=== PATIENT | female | born 1955 | race Caucasian/White ===

== ENCOUNTER 2025-01-13 15:32 | Outpatient (AMB) | payer OTHER, SELFPAY ==
--- NOTE | 2025-01-13 15:34 | A.OFFPC_ITS ---
Vital Signs 01/13/25 15:43 Height 5 ft 1 in Weight 239 lb 2 oz BMI 45.2 BP 142/79 H Blood Pressure Location Rt radial Position Sitting Pulse 81 Pulse Source Pulse Oximeter Temp 97.8 F Temp Source Oral Pulse Oximetry (%) 93 Oxygen Delivery Method Room Air Intake Visit Reasons: establish care Accompanied by: Grand Child Allergies No Known Allergies Allergy (Verified 01/13/25 15:35) Tobacco use date assessed: 01/13/25 Fall risk assessment: No Falls in past year Last assessed Fall Risk: 01/13/25 Dental Screening Dental Screen Date: 01/13/25 Did you have a dental visit in the last 12 months?: No Was dental information given to patient?: Patient has dentist HPI HPI Comments History of Present Illness Details History of Present Illness The patient is a 69-year-old female presenting with oral discomfort and knee pain. Hypertension: - The patient has a history of hypertens ion, previously managed in [place]. - Blood pressure was recorded at 142/79 mmHg during the visit. Anxiety: - The patient experiences anxiety, which she associates with a past incident of falling in the snow and fracturing her wrist. - She is currently prescribed duloxetine for anxiety management. Depression: - The patient reports depression and is prescribed duloxetine for management. Insomnia: - The patient has difficulty sleeping, p articularly due to knee and back pain. - She is prescribed trazodone to aid sle ep. Osteoarthritis of the knees: - The patient has been advised to underg o total knee replacement surgery due to severe osteoarthritis. - She has attempted weight loss to quali for surgery but has not proceeded with the operation. History of wrist fracture: - The patient fractured her left wrist a fter a fall in the snow, which impacted her daily activities significantly. Review of Systems - Oral: Reports discomfort in the mouth. - Musculoskeletal: Reports knee pain and history of wrist fracture. - Psychiatric: Reports anxiety and depre ssion. - Sleep: Reports difficulty sleeping due to pain. 10-point ROS reviewed and negative excep t as noted in HPI Past Medical History - Hypertension, managed in [place] - Anxiety, currently managed with duloxe jung - Depression, currently managed with dul oxetine - Insomnia, managed with trazodone - Osteoarthritis of the knees, advised f or total knee replacement - History of left wrist fracture Health Maintenance - Blood tests planned to assess red and white blood cells, hemoglobin, kidney function, electrolytes, glucose, cholesterol, magnesium, B12, folate, thyroid function, vitamin D, and hepatitis B status. Physical Exam General: Well-appearing, in no acute distress. Vital signs: Blood pressure 142/79. HEENT: Normocephalic, atraumatic. PERRLA, EOMI. Conjunctiva clear, sclera anicteric. Oropharynx clear, mucous membranes moist. TMs intact bilaterally. Neck: Supple, no lymphadenopathy, no thyromegaly, no JVD or carotid bruits. Cardiovascular: RRR, normal S1/S2, no murmurs, rubs, or gallops. Peripheral pulses 2+ and symmetric. No edema. Respiratory: Lungs clear to auscultation bilaterally, no wheezes, rales, or rhonchi. Normal effort. Abdomen: Soft, non-tender, non-distended. Normoactive bowel sounds. No hepatosplenomegaly, no masses. MSK: Limited range of motion due to knee pain. History of left wrist fracture. No joint swelling or deformity. Normal gait. Skin: Warm, dry, intact. No rashes, lesions, or pallor. Neuro: Alert and oriented x3. Cranial nerves II-XII intact. Strength 5/5 throughout. Sensation intact. Reflexes 2+ symmetric. Normal coordination and gait. Psych: Appropriate mood and affect. Normal judgment and insight. History of anxiety and depression. Taking duloxetine, gabapentin, meloxicam, and trazodone. Plan 1. Hypertension - Blood pressure management to be contin ued, with monitoring of current levels and adjustment of therapy as needed. 2. Anxiety - Continue current management with dulox etine, monitor for efficacy and side effects. 3. Depression - Continue current management with dulox etine, monitor for efficacy and side effects. 4. Insomnia - Continue trazodone for sleep, assess f or improvement in sleep quality and any side effects. 5. Osteoarthritis Of The Knees - Consideration for total knee replaceme nt surgery, pending weight management and patient readiness. 6. History Of Wrist Fracture - No current intervention required, heber tor for any residual functional limitations. Discussion Notes I discussed with the patient the management of her hypertension, anxiety, depression, and insomnia. We reviewed her current medications, including duloxetine and trazodone, and emphasized the importance of adherence to her treatment regimen. We also discussed the potential for knee replacement surgery due to her osteoarthritis and the need for weight management to facilitate this. I advised her on the upcoming blood tests to monitor various health parameters and scheduled a follow-up appointment in two weeks to review her results and adjust her management plan as necessary. Patient was informed and verbally consented to the use of an ambient scribe for clinic note documentation during this visit. Patient Instructions - Continue taking prescribed medications : duloxetine for anxiety and depression, trazodone for sleep. - Monitor blood pressure regularly and r eport any significant changes. - Follow up in two weeks for review of b lood test results and management plan adjustment. - Consider weight management strategies to prepare for potential knee replacement surgery. Total time spent caring for the patient today was 30 minutes. This includes time spent before the visit reviewing the chart, time spent documenting, and time spent reviewing laboratory results, diagnostic imaging, medications, performing a medically necessary evaluation, counseling on diagnoses, care coordination, ordering appropriate tests. [facility] Medical History (Updated 01/13/25 @ 09:39 by Elina Camargo MA) Fx triquetral, wrist-closed Schizoaffective disorder Hypertension Family History (Updated 01/13/25 @ 15:43 by Anjana Brown [facility]) Mother Arthritis Enlarged heart Father No problems noted. Social History Housing: House Patient Tobacco Use Status: Former Tobacco user service: No Current occupational status: employed and disabled Cognitive needs: Yes (walker) Hearing needs: No Vision needs: Yes (rx glasses) Questionnaire PHQ-9 Over the last 2 weeks, how often have you been bothered by any of the following problems? 1. Little interest or pleasure in doing things: nearly every day 2. Feeling down, depressed, or hopeless: nearly every day 3. Trouble falling or staying asleep, or sleeping too much: nearly every day 4. Feeling tired or having little energy: nearly every day 5. Poor appetite or overeating: not at all 6. Feeling bad about yourself - or that you are a failure or have let yourself or your family down: more than half the days 7. Trouble concentrating on things, such as reading the newspaper or watching television: more than half the days 8. Moving or speaking so slowly that other people could have noticed. Or the opposite - being so fidgety or restless that you have been moving around a lot more than usual: more than half the days 9. Thoughts that you would be better off or of hurting yourself in some way: more than half the days Total score: 20 Source: Developed by Drs. Khari Palmer, Ashok Pitts and colleagues, with an educational yara from [employer]. Thrive Questionnaire Date Thrive assessed: 01/13/25 I am a: Parent/Caregiver What is your living situation today?: I have a steady place to live Within the past 12 months, did the food you bought not last and you didn't have the money to get more?: Never true Within the past 12 months, did you worry whether your food would run out before you got money to buy more?: Never true Do you have trouble paying for medicines?: No Do you have trouble getting transportation to medical appointments?: No Do you have trouble paying your heating and electricity bill?: Yes Do you have trouble taking care of your child, family member or friend?: No Are you currently unemployed and looking for a job?: No Are you interested in more education?: No Please select the resources that you would like help with: Utilities Currently or been in a relationship where the following occur: No concerns reported THRIVE Score: 1 AUDIT C Alcohol Use Questionnaire (AUDIT-C) 1. How often do you have a drink containing alcohol?: Never Total Score: 0 NAKUL-7 AMB Questionnaire NAKUL-7 Date NAKUL - 7 assessed: 01/13/25 Feeling nervous, anxious, or on edge: 2 = More than half the days Not being able to stop or control worryin = More than half the days Worrying too much about different things: 2 = More than half the days Trouble relaxin = Nearly every day Being so restless that it is hard to sit still: 3 = Nearly every day Becoming easily annoyed or irritable: 3 = Nearly every day Feeling afraid as if something awful might happen: 3 = Nearly every day Total NAKUL-7 score (0-4 normal; 5-9 mild; 10-14 moderate; 15-21 severe): 18 Source: Developed by Drs. Khari Palmer, Ashok Pitts and colleagues, with an educational yara from [employer]. Physical exam (Primary Care) Vital Signs: Last Vital Signs Temp 97.8 F 01/13/25 15:43 Pulse 81 01/13/25 15:43 BP 142/79 H 01/13/25 15:43 Pulse Ox 93 01/13/25 15:43 Oxygen Delivery Method Room Air 01/13/25 15:43 BMI result Body Mass Index 45.2 Tobacco/Smoking Status: Tobacco use Status Tobacco use date assessed 01/13/25 01/13/25 15:38 Patient Tobacco Use Status Former Tobacco user 01/13/25 15:46 PHQ-9: PHQ-9 Score PHQ-9: Total score 20 01/13/25 15:38 Thrive Assessment: Date of Thrive Assessment Date Thrive assessed 01/13/25 01/13/25 15:38 Currently or been in a relationship where the following occur: No concerns reported Coding Level of Care Code New Pt Level 4 (14254) Diagnoses Hypertension I10 Anxiety and depression F41.9; F32.A Insomnia G47.00 Osteoarthritis of both knees M17.0 Morbid obesity due to excess calories E66.01 Impaired gait and mobility R26.89 Assessment & Plan Assessment & Plan (1) Hypertension: Code(s): I10 - Essential (primary) hypertension (2) Anxiety and depression: Code(s): F41.9 - Anxiety disorder, unspecified; F32.A - Depression, unspecified (3) Insomnia: Code(s): G47.00 - Insomnia, unspecified (4) Osteoarthritis of both knees: Code(s): M17.0 - Bilateral primary osteoarthritis of knee (5) Morbid obesity due to excess calories: Code(s): E66.01 - Morbid (severe) obesity due to excess calories (6) Impaired gait and mobility: Code(s): R26.89 - Other abnormalities of gait and mobility Plan Orders: Orders Complete Blood Count Auto Diff Today Z13.9 - Encounter for screening, unspecified Comprehensive Met. Panel Today Z13.9 - Encounter for screening, unspecified Hepatitis B Surface Antibody Today Z13.9 - Encounter for screening, unspecified Lipid Panel Today Z13.9 - Encounter for screening, unspecified Magnesium Today Z13.9 - Encounter for screening, unspecified UA CC w/rflx Micro + Cult Today Z13.9 - Encounter for screening, unspecified Vitamin B12 and Folate Today Z13.9 - Encounter for screening, unspecified Vitamin D 1,25 dihydroxy Today Z13.9 - Encounter for screening, unspecified Hemoglobin A1c Today Z13.9 - Encounter for screening, unspecified Hepatitis B Surface Antigen Today Z13.9 - Encounter for screening, unspecified Hepatitis C Antibody Today Z13.9 - Encounter for screening, unspecified HIV Ab/Ag Today Z13.9 - Encounter for screening, unspecified TSH reflex Free T4 Today Z13.9 - Encounter for screening, unspecified
[2025-01-13 15:43] VITALS: BP 142/79; PULSE 81; TEMP 36.6; O2SAT 93; BMI 45.2
== END 2025-01-13 16:08 | disposition home or self-care (01) ==
LOC: HO.HMCFMS 15:33
PROVIDERS: PCP Student in an Organized Health Care Education/Training Program; Visit Provider Student in an Organized Health Care Education/Training Program
DX: I10 Essential (primary) hypertension (principal); F41.9 Anxiety disorder, unspecified; F32.A Depression, unspecified; G47.00 Insomnia, unspecified; M17.0 Bilateral primary osteoarthritis of knee; E66.01 Morbid (severe) obesity due to excess calories; R26.89 Other abnormalities of gait and mobility

== ENCOUNTER → 2025-01-13 15:32 | Outpatient (BNVA) | payer OTHER, SELFPAY | PROVIDERS: PCP Internal Medicine; Visit Provider Student in an Organized Health Care Education/Training Program | DX: I10 Essential (primary) hypertension (principal); F41.9 Anxiety disorder, unspecified; F32.A Depression, unspecified; G47.00 Insomnia, unspecified; M17.0 Bilateral primary osteoarthritis of knee; E66.01 Morbid (severe) obesity due to excess calories; R26.89 Other abnormalities of gait and mobility; Z68.42 Body mass index [BMI] 45.0-49.9, adult | CPT/HCPCS: 96127; 99202 ==

== ENCOUNTER 2025-01-21 10:08 | Outpatient (REF) | payer OTHER, SELFPAY ==
--- OUTSIDE RECORDS SUMMARY | 2025-01-21 12:00 | XMS_ITS | Data Portability ---
Author Organization [facility] [employer] [facility], [facility] [employer] [facility] Address [address] [place] [address] Care Team Providers Care Telegraph Repeater Installer Name Role Phone [facility] Referring Provider [phone] Assessment No assessment recorded. Plan of Treatment Reminders Order Date Submit Date Provider Last Modified By Organization Details Last Modified Time Details Appointments None recorded. Lab None recorded. Referral None recorded. Procedures None recorded. Surgeries None recorded. Imaging None recorded. Medication Orders ketorolac 30 mg/mL (1 mL) injection solution 2022 023 [email or web address] Not available 3 12:19:37 Patient TargetsNo targets recorded. Patient InstructionsNo instructions recorded. Reason for Referral None Reported. Medical Equipment None Reported. Medications Name Sig Start Date Stop Date Status Note LastModified by Organization Details LastModified Time trazodone 50 mg tablet TAKE 1 TABLET BY MOUTH AT BEDTIME FOR SLEEP active Not Available Not Available No t Available ketorolac 30 mg/mL (1 mL) injection solution Inject 1 mL as needed by intramuscul ar route for 1 day. 2022 active Not Available Not Available Not Avai lable escitalopram 10 mg tablet TAKE 1 TABLET BY MOUTH EVERY DAY active Not Available Not Available No t Available duloxetine 60 mg capsule,lynda yed release TAKE 1 CAPSULE BY MOUTH EVERY MORNING active Not Available Not Available No t Available Vitals Date Recorded Respiratory rate Oxygen saturation Oxygen saturation in Arterial blood by Pulse oximetry Heart rate Systolic And Diastolic Provider Name and Address Organization Details Last Updated DateTime 3 18 /min 97 % 97 % 95 /min 158/92 mm[Hg] Not Available [employer] - production 3 12:15:35 Social History None recorded. Functional Status None recorded. Mental Status None recorded. Family History Nothing Reported. Medical History No medical history recorded. Gynecological HistoryNo gynecological history recorded. Obstetrics History GPAL:G 0 P 0 0 0 0 Past Encounters Encounter ID Performer Location Encounter Start Date Encounter Closed Date Diagnosis/Indication Diagnosis SNOMED-CT Code Diagnosis ICD10 Code Diagnosis IMO Codes Diagnosis Note [id number] Ruth Ann Chong MD Main - [address] [id number] 04/25/2022 12:15:33 04/30/2022 19:48:58 Chronic back pain [id number] G89.29 66 year old female being evaluated for acute on chronic bilateral knee and back pain. Patient reports has had this pain for some time, but is worse recently. No fever/chil ls, no trauma history, no loss of mobility or limitation in daily function. Taking tylenol and motrin, only marginally helpful. Interested in something else for pain. Exam notable for normal vital signs, and grossly normal back and knee exam. 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 Health Concerns Section Related Observation LastModified by Organization Detai ls LastModified Time None Recorded Concern Status LastModified by Organization Details LastModified Time None Recorded Advance Directives Directive None Recorded Payers Insurance Date Sequence Insurance Name Policy Number Policy Blanco Covered Member ID Blanco Member ID Guarantor Name 04/25/2022 1 [facility] - DOS PRIOR TO 2022 - DUAL ELIGIBLE (MEDICARE REPLACEMENT/ADV ANTAGE - HMO) Hipolita Mitchell Kennedy [id number] Hipolita Mitchell Kennedy Notes Date Note Type Note Provider Name and Address Organization Details Recorded Time 04/25/2022 text/html [facility] Nursing Assessment: Chief Complaints: Pain PMH: Other Allergies: No Known Comments: Visit requested for chronic lower back pain that has recently worsened and bilat knee pain. PMH of arthritis. No falls or injuries. Patient taking APAP with little relief. Ambulated using walker. No recent decline in mobility. .................. .................. .................. .................. .................. .................. .................. ............... Puppy Walker Note: Pt states she has arthritis and needs to loose 25lbs for them to do knee surgery. She s also having lower back pain from arthritis. Pt denies any recent trauma to the areas. Pt states normally Tylenol/Motrin help but have been mildly ineffective recently. No bruising noted in areas. C consulted l. Pt given 30mg IM ketorolac. Red flags discussed .................. .................. .................. .................. .................. .................. .................. ............... Disposition: Fulfilled Ruth Ann Chong MD [address] [facility],[address], [place], [address], [employer] - Contacts+ 04/25/2022 12:19:43 OBGyn Episode No OBEpisode recorded.
--- OUTSIDE RECORDS SUMMARY | 2025-01-21 12:00 | XMS_ITS | Clinical Summary ---
Author Organization [facility] [address] [place] [address] [place] [address] Phone Care Team Providers Care Bacteriology Technician Name Role Phone Sahara Shafer MD Primary Care Prov ider Allergies No known active allergies Medications DULoxetine (CYMBALTA) [address] capsule TAKE 1 CAPSULE BY MOUTH EVERY MORNING TAKE WITH THE 30 MG CAPSULE 08/21/2023 Active escitalopram (LEXAPRO) 10 mg tablet 09/03/2023 Active traZODone (DESYREL) 50 mg tablet TAKE 1 TABLET BY MOUTH AT BEDTIME FOR SLEEP 01/24/2021 Active acetaminophen (Tylenol 8 Hour) 650 mg 8 hr tablet Take 1 tablet (650 mg total) by mouth every 8 (eight) hours if needed for mild pain. Do not crush, chew, or split. 30 tablet 2 02/10/2024 Active meloxicam (MOBIC) 15 mg tablet TAKE 1 TABLET BY MOUTH DAILY NEEDED FOR PAIN 90 tablet 03/05/2024 Active Active Problems Problem Noted Date Diagnosed Date Obesity 02/06/2021 Primary osteoarthritis of both knees 10/02/2020 Anxiety and depression 11/03/2017 Essential hypertension 11/03/2017 Overview (01/05/2024): Was on medication in the past; unsure of name Encounters Date Type Department Care Team Description 12/17/[address] [facility] [address] [place], [place] [phone] Sahara Shafer MD 11/22/2024 Telephone Lung Screening Program [address] [place] [phone] No Ge [place] from Last 3 Months Immunizations Immunization Administration Dates Next Due Pfizer SARS-CoV-2 COVID-19, mRNA, LNP-S, preservative free 12/05/2020,11/14/2020 Pneumococcal conjugate 20 va lent (Prevnar 20, PCV 20) 2mo and older 09/03/2023 Tdap Tetanus diptheria acell ular pertussis (Boostrix; Adacel) 7yo and older 11/03/2017 Surgical History Surgery Date Site/Laterality Comments OTHER SURGICAL HISTORY PROCEDURE: DENIES PREVIOUS SURGERY Medical History Medical History Date Comments Essential hypertension 11/03/2017 DX:Essent ial hypertension; COMMENT: Was on medication in the past; unsure of name - stopped with clinic closing Anxiety and depression 11/03/2017 DX:Anxiet y and depression Obesity DX:Obesity Family History Medical History Relation Name Comments Breast cancer Aunt maternal No Known Problems Daughter 1 No Known Problems Daughter 2 No Known Problems Daughter 3 No Known Problems Father Other: cardiac enlargement Mother No Known Problems Son 1 No Known Problems Son 2 No Known Problems Son 3 Lung cancer Neg Hx Relation Name Status Comments Aunt maternal Daughter 1 Alive Daughter 2 Alive Daughter 3 Alive Father Mother Alive Son 1 Alive Son 2 Alive Son 3 Alive Social History Tobacco Use Types Packs/Day Years Used Date Smoking Tobacco: Former Cigarettes 1.5 30 0 04/07/1979 - 04/07/2009 Smokeless Tobacco: Never Tobacco Cessation:Counseling Given: Not Answered Alcohol Use Standard Drinks/Week Comments No 0 (1 standard drink = 0.6 oz pur e alcohol) Comments Unknown Sex and Gender Information Value Date Recorded Sex Assigned at Female 12/08/2024 8:51 PM EDT Legal Sex Female 3:57 AM EST Gender Identity Not on file Sexual Orientation Not on file Obstetrics History Last Filed Vital Signs Vital Sign Reading Time Taken Comments Blood Pressure 115/70 07/06/2024 1:59 PM EDT Pulse 98 07/06/2024 1:59 PM EDT Temperature 36 C (96.8 F) 02/10/2024 12:46 PM EST Respiratory Rate 14 02/10/2024 12:46 PM EST Oxygen Saturation - - Inhaled Oxygen Concentration - - Weight 109 kg (241 lb) 07/06/2024 1:59 PM EDT Height 160 cm (5' 3 ) 01/13/2024 1:12 PM EDT Body Mass Index 42.69 01/13/2024 1:12 PM EDT Plan of Treatment Health Maintenance Due Date Last Done Comments Breast Cancer Screening 1955 RSV Immunization Adult Patients (1 - Risk 50-74 years 1-dose series) 11/18/2003 Zoster Vaccines (1 of 2) 11/18/2003 Colorectal Cancer Screening: Stool Based Tests (FOBT/FIT) 03/16/2022 Social Influencers of Health Screening 03/16/2022 Hypertension/CHF/CAD Annual BMP Blood Test 08/21/2023 08/20/2022 Medicare Annual Wellness Visit 02/22/2024 02/21/2023 Depression Screening 04/07/2024 09/03/2023 Falls Risk Assessment 09/02/2024 09/03/2023 COVID-19 Vaccine (3 - 2024-2 6 season) 2024 12/05/2020, 11/14/2020 Influenza Vaccine (#1) 2024 Cholesterol Screening (Lipid Panel) 08/21/2027 08/20/2022 DTaP,Tdap,and Td Vaccines (3 - Td or Tdap) 11/04/2027 11/03/2017, 10/04/2016 Osteoporosis Screening (Bone Density Screening) 05/08/2033 05/08/2023, 05/08/2023 Hepatitis C Screening Completed 11/03/2017 Pneumococcal Vaccine: 50+ Years Completed 09/03/2023 Lung Cancer Screening (Low Dose CT) Discontinued 12/15/2023, 12/15/2023 HIB Vaccines Aged Out No longer eligi ble based on patient's age to complete this topic HPV Vaccines Aged Out No longer eligi ble based on patient's age to complete this topic Hepatitis A Vaccines Aged Out No long er eligible based on patient's age to complete this topic Hepatitis B Vaccines Aged Out No long er eligible based on patient's age to complete this topic IPV Vaccines Aged Out No longer eligi ble based on patient's age to complete this topic MMR Vaccines Aged Out No longer eligi ble based on patient's age to complete this topic Meningococcal ACWY Vaccine Aged Out N o longer eligible based on patient's age to complete this topic Meningococcal B Vaccine Aged Out No l onger eligible based on patient's age to complete this topic RSV Immunization Patients Under 20 months Aged Out No longer eligible based on patient's age to complete this topic Varicella Vaccines Aged Out No longer eligible based on patient's age to complete this topic Procedures Procedure Name Priority Date/Time Associated Diagnosis Comments CT LUNG SCREENING LOW DOSE Routine 12/15/2023 5:26 PM EDT Encounter for screening for malignant neoplasm of respiratory organs DEPRESSION SCREENING Routine 09/03/2023 FALLS RISK ASSESSMENT Routine 09/03/2023 DXA BONE DENSITY STUDY 1+ SITS AXIAL SKEL Routine 05/08/2023 11:43 AM EST Encounter for general adult medical examination with abnormal findings ANNUAL BMP BLOOD TEST Routine 08/20/2022 LIPID PANEL Routine 08/20/2022 HEPATITIS C SCREENING Routine 11/03/2017 from Last 3 Months or Most Recently Relevant to Health Maintenance Results * CT LUNG SCREENING LOW DOSE (12/15/2023 5:26 PM EDT) Anatomical Region Laterality Modality Computed Tomogra phy 12/15/2023 11:0 5 AM EDT Narrative 12/15/2023 5:26 PM EDT [facility] Diagnostic Imaging Department [address] [place] [address] Patient: DEMETRIUS MCKNIGHT /Age/Sex: 1955 - 68 - F Unit#: [id number] Location/Status: SPDICATLS/REG CLI Mnemonic/Ordering Site: [facility] [place] Ordering Physician: JERRY SMITH MD CT Lung Screening Low Dose - 12/15/23 - 1112 Report Status:Signed PROCEDURE: CT chest lung cancer screening low dose examination. INDICATION: CT lung screening. TECHNIQUE: Chest CT without intravenous contrast was performed. Low-dose examination was performed. Reformatted images were evaluated. DOSE: CTDIvol: 4.8mGy. Total exam DLP: 147.5mGy-cm COMPARISON: None FINDINGS: NODULES: No significant nodules are identified. LUNGS: No significant emphysematous changes. Minimal linear atelectasis is noted at the lung bases. OTHER: Limited views of the upper abdomen appear normal. Mediastinum appears within normal limits. IMPRESSION: No significant nodules identified. Lung-RADS 1. Follow up examination is advised in one year. Dictating Physician: CHANDRA MOYA MD Electronically Signed by: CHANDRA MOYA MD Dic Date/Time: 12/15/23 1718 Sign date/Time: 12/15/23 1726 Procedure Note Chandra Moya MD - 01/21/2024 [facility] Diagnostic Imaging Department [address] [place] [address] Patient: DEMETRIUS MCKNIGHT /Age/Sex: 1955 - 68 -F Unit#: [id number] [facility] Mnemonic/Ordering Site: [facility] Ordering Physician: JERRY SMITH MD CT Lung Screening Low Dose - 12/15/23 - 1112 Report Status:Signed PROCEDURE: CT chest lung cancer screening low dose examination. INDICATION: CT lung screening. TECHNIQUE: Chest CT without intravenous contrast was performed.Low-dose examination was performed. Reformatted images were evaluated. DOSE: CTDIvol: 4.8mGy. Total exam DLP: 147.5mGy-cm COMPARISON: None FINDINGS: NODULES: No significant nodules are identified. LUNGS: No significant emphysematous changes. Minimal linear atelectasisis noted at the lung bases. OTHER: Limited views of the upper abdomen appear normal. Mediastinumappears within normal limits. IMPRESSION: No significant nodules identified. Lung-RADS 1. Follow up examination is advised in one year. Dictating Physician: CHANDRA MOYA MD Electronically Signed by: CHANDRA MOYA MD Dic Date/Time: 12/15/23 1718 Sign date/Time: 12/15/23 1726 Result [facility] Jerry Smith MD [facility] [place] PROCEDURES Final Result * Falls Risk Assessment (09/03/2023) Falls Risk Assessment abstracted Historical Provider HEALTH MAINTENANCE Final Result * Depression Screening (09/03/2023) Depression Screening abstracted Historical Provider HEALTH MAINTENANCE Final Result * DXA BONE DENSITY STUDY 1+ SITS AXIAL SKEL (05/08/2023 11:43 AM EST) Anatomical Region Laterality Modality Bone Densitometr y 02/21/2023 12:1 9 PM EST Narrative 05/08/2023 4:17 PM EST BONE DENSITY Lumbar Spine T-score is -1.2 (SD relative to 20-29 y/o adult) Z-score is +1.0 (SD relative to age matched peers) This is consistent with osteopenia by criteria defined by the WHO. Left Hip T-score is -1.7 Z-score is 0.0 This is consistent with osteopenia by criteria defined by the WHO. Impression: Based on the World Health Organization criteria, Hipjeff Kennedy should be classified as having osteopenia. This patient has a 15% risk of major osteoporotic fracture and a 2.1% risk of hip fracture over the next 10 years. (World Health Organization Fracture Risk Assessment) [facility] Department of Internal Medicine recommends using National Osteoporosis Foundation (NOF) guidelines in treatment decisions related to osteoporosis. NOF guidelines suggest considering treatment for postmenopausal women and men aged 50 or older presenting with the following: History of hip or vertebral fracture. T-score less than or equal to -2.5 (DXA) at the femoral neck, total hip, or spine, after appropriate evaluation to exclude secondary causes. Low bone mass (T-score between -1.0 and -2.5 at the femoral neck or spine) AND a 10-year probability of a hip fracture greater than or equal to 3% OR a 10-year probability of a major osteoporosis-related fracture greater than or equal to 20% based on the [place]-adapted WHO algorithm Please note that all treatment decisions require clinical judgment and consideration of individual patient factors, including patient preferences, co-morbidities, previous drug use, risk factors not captured in the FRAX model (e.g., frailty, falls, vitamin D deficiency, increased bone turnover, interval significant decline in bone density) and possible under- or over-estimation of fracture risk by FRAX. Procedure Note Tal Barnes MD - 11/24/2023 BONE DENSITY Lumbar Spine T-score is -1.2 (SD relative to 20-29 y/o adult) Z-score is +1.0 (SD relative to age matched peers) This is consistent with osteopenia by criteria defined by the WHO. Left Hip T-score is -1.7 Z-score is 0.0 This is consistent with osteopenia by criteria defined by the WHO. Impression: Based on the World Health Organization criteria, Hipjeff Kennedyshould be classified as having osteopenia. This patient has a 15% risk ofmajor osteoporotic fracture and a 2.1% risk of hip fracture over the next10 years. (World Health Organization Fracture Risk Assessment) [facility] Department of Internal Medicine recommendsusing National Osteoporosis Foundation (NOF) guidelines in treatmentdecisions related to osteoporosis. NOF guidelines suggest consideringtreatment for postmenopausal women and men aged 50 or older presentingwith the following: History of hip or vertebral fracture. T-score less than or equal to -2.5 (DXA) at the femoral neck, total hip,or spine, after appropriate evaluation to exclude secondary causes. Low bone mass (T-score between -1.0 and -2.5 at the femoral neck or spine)AND a 10-year probability of a hip fracture greater than or equal to 3% ORa 10-year probability of a major osteoporosis-related fracture greaterthan or equal to 20% based on the [place]-adapted WHO algorithm Please note that all treatment decisions require clinical judgment andconsideration of individual patient factors, including patientpreferences, co-morbidities, previous drug use, risk factors not capturedin the FRAX model (e.g., frailty, falls, vitamin D deficiency, increasedbone turnover, interval significant decline in bone density) and possibleunder- or over-estimation of fracture risk by FRAX. Result [facility] Sahara Shafer MD IM DXA PROCEDURES Final Result * Annual BMP Blood Test (08/20/2022) [facility] Annual BMP Blood Test abstracted Result [facility] HEALTH MAINTENANCE Final Result * Lipid panel (08/20/2022) [facility] LDL/HDL Ratio 2 0 - 4 Triglycerides 58 0 - 150 mg/dL Cholesterol 157 0 - 200 mg/dL HDL 69 >=40 mg/dL LDL Cholesterol 77 0 - 100 mg/dL Blood Venous blood specimen / Unknown Result [facility] Provider LAB BLOOD ORDERABLES Leigh Ann l Result * Hepatitis C Screening (11/03/2017) [facility] Hepatitis C Screening abstracted Result [facility] Kamille FUNES HEALTH MAINTENANCE Final Result from Last 3 Months or Most Recently Relevant to Health Maintenance Insurance [employer] MEDICARE Member Subscriber Plan / Payer (Ef fective 2020-Present) Name:CONNIE REDMONDDEMETRIUS CONTRERAS Relation to Subscriber:Self Name:Mitchell Demetrius Kennedy Payer ID:[id number] Group ID:[id number] Type:Not on file Address: [place] [address] [address] [id number] Advance Directives Documents on File Type Date Recorded Patient Hand Filer Balance Wheel Expl anation Advance Directives and Living Will 07/01/2024 9:19 AM HEALTH CARE PROXY Care Teams Bacteriology Technician Relationship Specialty Start Date End Date Sahara Shafer MD [address] [place] [phone] PCP - General Internal Medicine 12/17/21
[2025-01-21 13:35] LABS: MANUAL DIFF FLAG NO
[2025-01-21 13:57] LABS: Hematocrit 48.2 % (37.0-47.0); Hemoglobin 14.5 g/dl (12.0-16.0); Imm Gran Abs Auto 0.03 X10*3/uL (0.00-0.03); Imm Gran Pct Auto 0.4 % (0.0-0.4); Lymphocytes Absolute Auto 2.3 X10*3/uL (1.2-4.9); Mean Corpuscular HGB Conc 30.1 g/dl (31.0-35.0); Mean Corpuscular Hemoglobin 27.8 pg (27.0-33.0); Mean Corpuscular Volume 92.3 fL (80.0-98.0); NRBC Abs Auto 0.000 X10*3/uL (0.0-0.012); NRBC Pct Auto 0.0 /100WBC (0.0-0.2); Platelet Count 233 X10*3/uL (160-400); Red Blood Count 5.22 X10*6/uL (4.20-5.50); White Blood Count 8.0 X10*3/uL (4.8-10.8)
[2025-01-21 14:46] LABS: Folate 6.5 ng/mL (> or = 4.0); Vitamin B12 363 pg/mL (200-900)
[2025-01-21 17:20] LABS: Alanine Aminotransferase 12 U/L (0-31); Albumin Level 3.9 g/dL (3.5-5.0); Alkaline Phosphatase 140 U/L (39-117); Anion Gap 12 (12-20); Aspartate Amino Transferase 25 U/L (5-31); Blood Urea Nitrogen 15 mg/dL (9-16); Calcium 8.8 mg/dL (8.4-10.2); Carbon Dioxide 30 mmol/L (22-29); Chloride 106 mmol/L (96-108); Cholesterol 146 mg/dL (<200); Estimated Glomerular Filt Rate > 60; HDL Cholesterol 54 mg/dL (>40); Magnesium 2.1 mg/dL (1.6-2.6); Potassium 4.3 mmol/L (3.3-5.1); Sodium 144 mmol/L (135-145); Total Protein 7.4 g/dL (6.5-8.0); Triglycerides 56 mg/dL (<150)
[2025-01-22 10:58] LABS: HBS Num1 3.38 mIU/mL (0-7.99); HBsAGNum1 0.35 S/CO (0.00-0.99); HIV Num 1 0.08 S/CO (0.00-0.99); Hepatitis B Surface Antigen Negative (Negative); ~HepC Num1 0.09 S/CO (0.00-0.79); ~Hepatitis B Surface Antibody NONREACTIVE (Nonreactive); ~Hepatitis C Antibody Nonreactive (Nonreactive)
[2025-01-27 01:29] LABS: VITAMIN D (1,25 OH) D3 40 pg/mL; Vit D (1,25-Dihydroxy) Total 40 pg/mL (18-72); Vitamin D (1,25 OH) D2 <8 pg/mL
== END 2025-01-21 10:09 | disposition home or self-care (01) ==
LOC: HO.HKASLDS 10:08
PROVIDERS: PCP Student in an Organized Health Care Education/Training Program; Visit Provider Student in an Organized Health Care Education/Training Program
DX: Z13.89 Encounter for screening for other disorder (principal); Z13.6 Encounter for screening for cardiovascular disorders; Z13.1 Encounter for screening for diabetes mellitus; Z13.29 Encounter for screening for other suspected endocrine disorder
CPT/HCPCS: 36415; 80053; 80061; 82607; 82652; 82746; 83036; 83735; 84443; 85025; 86706; 86803; 87340; 87389